=== PATIENT | male | born 1995 | race Caucasian/White ===

== ENCOUNTER 2016-06-09 04:36 | Emergency (ER) | payer OTHER ==
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
[~2016-06-09 04:36] MED LIST: FAMOTIDINE PO; NO MEDICATIONS; RISPERIDONE PO; ZOFRAN ODT4 MG/UDTAB PO; [UNRECOGNIZED DRUG - OTHER] PO
== END 2016-06-09 06:04 | disposition home or self-care (01) ==
LOC: SED 04:36
DX: S01.511A Laceration without foreign body of lip, initial encounter (principal); S13.4XXA Sprain of ligaments of cervical spine, initial encounter; S00.83XA Contusion of other part of head, initial encounter; S20.212A Contusion of left front wall of thorax, initial encounter; Z23 Encounter for immunization; F17.210 Nicotine dependence, cigarettes, uncomplicated; Y04.0XXA Assault by unarmed brawl or fight, initial encounter; Y92.89 Other specified places as the place of occurrence of the external cause
CPT/HCPCS: 12051; 70450; 70486; 71250; 72040; 90471; 90715; 99284